=== PATIENT | female | born 1995 | race Caucasian/White ===

== ENCOUNTER → 2019-03-27 | Outpatient (CLI) | payer OTHER ==
[~2019-03-27] MED LIST: AMOXICILLIN500 M2 PO; CORTISPORIN 1%-10 M1 OT; KEFLEX500 MG PO; MEDROL DOSEPAK4 MG PO; MOTRIN400 MG PO; ZYRTEC10 MG PO
== END | disposition home or self-care (01) ==
LOC: US 11:11
DX: Z34.81 Encounter for supervision of other normal pregnancy, first trimester (principal); Z3A.09 9 weeks gestation of pregnancy

== ENCOUNTER → 2019-07-03 | Outpatient (CLI) | payer OTHER | END | disposition home or self-care (01) | LOC: US 05-16 10:00 | DX: Z34.82 Encounter for supervision of other normal pregnancy, second trimester (principal); Z3A.27 27 weeks gestation of pregnancy ==

== ENCOUNTER → 2019-09-03 | Outpatient (CLI) | payer OTHER | END | disposition home or self-care (01) | LOC: US 11:30 | DX: Z34.83 Encounter for supervision of other normal pregnancy, third trimester (principal); Z3A.36 36 weeks gestation of pregnancy ==

== ENCOUNTER → 2019-09-26 | Outpatient (CLI) | payer OTHER | END | disposition home or self-care (01) | LOC: US 09-18 12:30 | DX: Z34.83 Encounter for supervision of other normal pregnancy, third trimester (principal); Z3A.39 39 weeks gestation of pregnancy ==

== ENCOUNTER → 2020-07-21 | Outpatient (CLI) | payer OTHER | END | disposition home or self-care (01) | LOC: US 16:54 | PROVIDERS: ATTEND Nurse Practitioner Women's Health | DX: Z34.81 Encounter for supervision of other normal pregnancy, first trimester (principal); Z3A.01 Less than 8 weeks gestation of pregnancy ==

== ENCOUNTER → 2020-10-02 | Outpatient (CLI) | payer OTHER | END | disposition home or self-care (01) | LOC: US 13:30 | PROVIDERS: ATTEND Nurse Practitioner Women's Health | DX: Z34.82 Encounter for supervision of other normal pregnancy, second trimester (principal); Z3A.18 18 weeks gestation of pregnancy ==

== ENCOUNTER 2020-12-13 16:10 | Emergency (ER) | payer OTHER ==
[~2020-12-13] VITALS: Ht 165.1 cm; Wt 97.5 kg
== END 2020-12-13 20:14 | disposition left against medical advice (07) ==
LOC: ED 16:10
DX: Z29.13 Encounter for prophylactic Rho(D) immune globulin (principal); Z3A.28 28 weeks gestation of pregnancy; Z53.21 Procedure and treatment not carried out due to patient leaving prior to being seen by health care provider

== ENCOUNTER 2022-07-10 16:07 | Emergency (ER) | payer MEDICAID | END 2022-07-10 17:45 | disposition home or self-care (01) | LOC: ED 16:07 | DX: S81.011A Laceration without foreign body, right knee, initial encounter (principal); Z23 Encounter for immunization; W26.8XXA Contact with other sharp object(s), not elsewhere classified, initial encounter; Y93.89 Activity, other specified; Y92.89 Other specified places as the place of occurrence of the external cause; Y99.8 Other external cause status ==

== ENCOUNTER 2023-07-29 20:36 | Emergency (ER) | payer MEDICAID ==
[~2023-07-29] VITALS: Ht 160 cm; Wt 113.4 kg
[2023-07-29] MEDS ORDERED: PENICILLIN VK500 MG PO (20:47)
[2023-07-29] MEDS ORDERED: PENICILLIN V POTASSIUM 500 MG TAB PO ONE (20:50)
== END 2023-07-29 21:07 | disposition home or self-care (01) ==
LOC: ED 20:36
DX: K04.7 Periapical abscess without sinus (principal)

== ENCOUNTER → 2025-01-10 | Outpatient (CLI) | payer MEDICAID ==
[~2025-01-10] MED LIST changes: +PENICILLIN VK500 MG PO
[2025-01-10 08:13] LABS: MEAN CELL VOLUME 80.4 fl (81.0-99.0); MEAN CORPUSCULAR HGB 25.6 pg (27.0-31.0); MEAN PLATELET VOLUME 12.1 fl (9.6-12.3); NUCLEATED RED BLOOD CELL 0.0 % (0.0-0.0); NUCLEATED RED BLOOD CELL 0.0 10*3/uL (0.0-0.0); PLATELET COUNT AUTOMATED 228.0 10*3/uL (130-400); RED CELL DISTRI WIDTH 14.2 % (0-14.5)
[2025-01-10 08:52] LABS: BUN 7 mg/dl (9-23); LDL CHOLESTEROL 91 mg/dL (9-159); SGPT/ALT 10 U/L (5-49)
== END | disposition home or self-care (01) ==
LOC: LAB 07:49
PROVIDERS: ATTEND Family Medicine
DX: Z00.00 Encounter for general adult medical examination without abnormal findings (principal); R53.83 Other fatigue; Z13.220 Encounter for screening for lipoid disorders

== ENCOUNTER 2025-01-25 16:33 | Emergency (ER) | payer MEDICAID ==
[~2025-01-25] VITALS: Ht 167.6 cm; Wt 113.4 kg
[2025-01-25] MEDS ORDERED: ERYTHROMYCIN OPH1 GM OPH (16:55)
[2025-01-25] MEDS ORDERED: ERYTHROMYCIN 1 GM TUBE OPH ONE (16:55)
== END 2025-01-25 17:07 | disposition home or self-care (01) ==
LOC: ED 16:33
DX: H00.014 Hordeolum externum left upper eyelid (principal)